=== PATIENT | male | born 1940 | race Caucasian/White ===

== ENCOUNTER → 2023-06-16 09:32 | Outpatient (BNVA) | payer OTHER, SELFPAY | PROVIDERS: PCP Emergency Medicine Emergency Medical Services; Referring Provider Emergency Medicine Emergency Medical Services; Visit Provider Psychiatry & Neurology Neurology | DX: F03.90 Unspecified dementia, unspecified severity, without behavioral disturbance, psychotic disturbance, mood disturbance, and anxiety (principal); R41.3 Other amnesia; R41.0 Disorientation, unspecified; R29.818 Other symptoms and signs involving the nervous system; Z79.899 Other long term (current) drug therapy | CPT/HCPCS: 36415; 82542; 82607; 82652; 82746; 83921; 84439; 84443; 84481; 86592; 86780; 99203 ==

== ENCOUNTER 2023-06-24 06:41 | Outpatient (CLI) | payer OTHER, SELFPAY ==
--- NOTE | 2023-06-24 06:45 | USCV_ITS ---
Denny Holder Age: 83 Gender: M : 1940 Exam Date: 06/24/2023 06:45 Ordering Phys: Lion Barajas MD Technologist: NICK Exam Location: [facility] [place] Indication: DIZZINESS Risk Factors: Previous Vascular Surgery: Right Brachial BP: / Left Brachial BP: / Right Left Velocity (cm/s) Spectral Plaque Velocity (cm/s) Spectral Plaque Syst/Diast Broadening Syst/Diast Broadening 111.60/ Prox CCA 87.10 / 69.20/ Mid CCA 56.40 / 56.40/ Hetro Distal CCA 49.10 / Hetro 80.10/ Hetro Prox ICA 51.60 / Hetro 74.70/ Mid ICA 62.30 / 68.30/ Distal ICA 58.70 / 87.40 ECA 82.10 1.40 ICA/CCA 1.30 Antegrade Vertebral Antegrade 27.00/ 4.80 cm/s 36.90/ 5.10 cm/s Tri Subclavian Bi 128.9 128.7 0 0 FINDINGS Minimal plaques in the scattered plaques in the common carotid, bifurcation and in the middle carotid arteries Normal Doppler flow velocities. Antegrade flow in the vertebral arteries bilaterally CONCLUSIONS Minimal plaques in the scattered plaques in the common carotid, bifurcation and in the middle carotid arteries. Features suggestive of less than 50% stenosis bilaterally. No significant stenosis in the vertebral, external carotid or subclavian arteries, based on the above findings Dr Boston Garcia MD [facility] (Electronically Signed) Final Date: 25 June 2023 09:46 S
== END 2023-06-24 06:42 | disposition home or self-care (01) ==
LOC: RAD 06:42
PROVIDERS: PCP Emergency Medicine Emergency Medical Services; Visit Provider Psychiatry & Neurology Neurology
DX: R26.89 Other abnormalities of gait and mobility (principal); I65.23 Occlusion and stenosis of bilateral carotid arteries
CPT/HCPCS: 93880

== ENCOUNTER 2023-07-16 08:45 | Outpatient (CLI) | payer OTHER, SELFPAY ==
--- NOTE | 2023-07-16 08:45 | MR_ITS ---
WS: [id number] MRI BRAIN WITH AND WITHOUT CONTRAST HISTORY: F03.90 - Unspecified dementia, unspecified severity COMPARISON: None available. TECHNIQUE: Multiplanar imaging performed through the brain with MultiHance 20 ml's IV. Diffusion imaging is normal. Moderate bilateral symmetric atrophy and mild small vessel ischemic dise ase. No large territory infarct. No susceptibility artifacts or prior lacunar infarcts. Ventricles and extra-axial spaces are prominent on the basis of central and peripheral atrophy. Mild hippocampal atrophy. Clivus and pituitary gland are normal. Visualized posterior fossa and brainstem are also normal. Postcontrast images are negative for masses or vascular malformations. Dural venous sinuses are normal. Paranasal sinuses: Well aerated with no significant disease. Mastoid air cells: Small amount of fluid LEFT mastoid air cells. Calvarium and scalp: Normal. IMPRESSION: 1. No acute infarct or enhancing mass. 2. Moderate bilateral symmetric atrophy and mild small vessel ischemic disease. 3. Mild bilateral hippocampal atrophy.
[2023-07-16] MEDS: gadobenate dimeglumine 20 mL vial IV (09:33)
== END 2023-07-16 08:46 | disposition home or self-care (01) ==
LOC: RAD 08:45
PROVIDERS: PCP Emergency Medicine Emergency Medical Services; Visit Provider Psychiatry & Neurology Neurology
DX: F03.90 Unspecified dementia, unspecified severity, without behavioral disturbance, psychotic disturbance, mood disturbance, and anxiety (principal); I67.82 Cerebral ischemia
CPT/HCPCS: 70553; A9577

== ENCOUNTER → 2023-09-22 12:46 | Outpatient (BNVA) | payer OTHER, SELFPAY | PROVIDERS: PCP Emergency Medicine Emergency Medical Services; Referring Provider Emergency Medicine Emergency Medical Services; Visit Provider Internal Medicine | DX: R07.9 Chest pain, unspecified (principal); R53.83 Other fatigue; R00.1 Bradycardia, unspecified; R94.31 Abnormal electrocardiogram [ECG] [EKG] | CPT/HCPCS: 93005; 99204 ==

== ENCOUNTER 2023-10-28 08:51 | Outpatient (CLI) | payer OTHER, SELFPAY ==
[2023-10-28 08:58] VITALS: BMI 31.1
--- NOTE | 2023-10-28 08:58 | ECG_ITS ---
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
--- NOTE | 2023-10-28 08:58 | NMCV_ITS ---
NM ozzie perf SPECT r/s* [id number] Denny Holder Age: 83 Gender: M : 1940 Exam Date: 10/28/2023 10:00 Ordering Phys: Yousuf Vaca M.D ([email or web address]) Technologist: JOSE Blanco Exam Location: [facility] [address] Indications: CP, SOB STRESS TEST Please see separate stress test report in [facility] for full findings IMAGE PROTOCOL Rest/Stress 1 Exercise Day Radiopharmaceutical Dose (mCi) Administration Site Administered by Rest: Tc-99m 10.4 IV JOSE Blanco Sestamibi Stress:Tc-99m 32.3 IV JOSE Blanco Sestamitonny Rest: 28-Oct-2023 60 Discovery 630 Stress: 28-Oct-2023 30 Discovery 630 Radiopharmaceutical was injected at 87 % maximum heart rate. Images obtained in supine and prone position. SPECT RESULTS Technical Quality: Good Raw Data Analysis: Normal Image Corrections: No attenuation or motion correction applied Summed Stress Score: 7 Summed Rest Score: 6 Summed Difference Score: 3 PERFUSION FINDINGS There is small area of inconsistent, partially reversible perfusion defect seen in the inferolateral wall. This consistent with attenuation artifact vs small area of prior infarct with small area of holland-infarct ischemia seen in the left circumflex artery territory. FUNCTIONAL RESULTS (calculated via Gated SPECT) Stress Image LV EF (%): 65 Stress EDV (mL):105 TID: 0.91 Stress ESV (mL):37 FUNCTIONAL FINDINGS: There is normal left ventricular systolic function. IMPRESSIONS 1. Attenuation artifact vs small area of prior infarct with minimal holland- infarct ischemia in left circumflex artery terrtiory. 2. LV systolic function is normal Yousuf Vaca MD (Electronically Signed) Final Date: 30 October 2023 09:17 S
--- NOTE | 2023-10-28 10:44 | PC.NURSE ---
Stress test/Physician Notified Dr. Vaca notified of pre-stress heart rate 41-44 sinus quan BP 125/70. Chart reviewed and does not take any medications which would lower HR. Called for clarification before proceeding with lexiscan stress test. Received orders to attempt exercise mibi due to significant bradycardia. If patient unable meet target HR with exercise mibi orders received to cancel remaining stress test and follow up in office.
[2023-10-28 11:05] VITALS: BP 156/86; PULSE 59
--- NOTE | 2023-10-28 12:15 | USCV_ITS ---
Denny Holder Age: 83 Gender: M : 1940 Exam Date: 10/28/2023 09:26 Ordering Phys: Yousuf Vaca M.D ([email or web address]) Technologist: GEOFF Exam Location: [facility] [place] Indication: CHEST PAIN AND SHORTNESS OF BREATH BP: 122 / 74 HR: 43 Rhythm: Sinus Technical Quality: Adequate MEASUREMENTS (Male / Female) Normal Values 2D ECHO LV Diastolic Diameter PLAX 4.3 cm 4.2 - 5.9 / 3.9 - 5.3 cm IVS Diastolic Thickness 1.0 cm 0.6 - 1.0 / 0.6 - 0.9 cm IVS Systolic Thickness 1.2 cm LVPW Diastolic Thickness 1.6 cm 0.6 - 1.0 / 0.6 - 0.9 cm LVPW Systolic Thickness 1.2 cm LVOT Diameter 2.0 cm LV Ejection Fraction 2D Teich 70.1 % LV Ejection Fraction MOD 4C 65.3 % LV Ejection Fraction MOD 2C 57.9 % LV Ejection Fraction 2C AL 60.9 % LA Diameter 4.7 cm RA Systolic Volume 4C AL 40.8 ml RA Systolic Volume 4C MOD 39.3 ml LA Sys Volume AL 47.3 cm cubed LA Sys Volume Index AL 20.3 cm cubed/m squared Aorta at Sinotubular Diameter 2.8 cm M-MODE LA Ao Ratio MM 1.3 AV Cusp Separation MM 1.2 cm DOPPLER AV Peak Velocity 196.4 cm/s LVOT Peak Velocity 112.0 cm/s AV Area Cont Eq vti 3.0 cm squared AV Area Cont Eq pk 1.8 cm squared MV Peak Velocity 99.0 cm/s MV Area PHT 2.9 cm squared Mitral E to A Ratio 1.5 TR Peak Velocity 309.0 cm/s TR Peak Gradient 38.2 mmHg TR Mean Velocity 235.0 cm/s TR Mean Gradient 24.5 mmHg TR Velocity Time Integral 111.4 cm TV Peak E Velocity 60.0 cm/s Right Atrial Pressure 3.0 mmHg Pulmonary Artery Systolic Pressu 41.2 mmHg PV Peak Velocity 82.0 cm/s RV Ejection Time 0.3 s FINDINGS Left Ventricle Left ventricle is normal in size. Left ventricular hypertrophy. LV systolic function is normal with EF 55 to 60%. No regional wall motion abnormalities are seen. Right Ventricle Normal in size and function Right Atrium Normal in size Left Atrium Normal in size Mitral Valve Structurally normal mitral valve. Mild mitral regurgitation. Aortic Valve Aortic valve is thickened. No significant stenosis. Mild aortic regurgitation Tricuspid Valve Mild tricuspid regurgitation. RVSP is 40 to 45 mmHg. This is consistent with mild pulmonary hypertension Pulmonic Valve Not well visualized Pericardium Normal Aorta Normal in size IVC Not well visualized CONCLUSIONS Left ventricular hypertrophy. LV systolic function is normal with EF 55 to 60%. Mild mitral regurgitation Mild aortic regurgitation Mild tricuspid regurgitation Mild pulmonary hypertension No comparison studies are available Yousuf Vaca MD (Electronically Signed) Final Date: 13 November 2023 07:52 S
== END 2023-10-28 08:52 | disposition home or self-care (01) ==
LOC: CDL 08:53
PROVIDERS: PCP Emergency Medicine Emergency Medical Services; Visit Provider Internal Medicine
DX: I51.7 Cardiomegaly (principal); R94.39 Abnormal result of other cardiovascular function study; R07.9 Chest pain, unspecified; R06.02 Shortness of breath
CPT/HCPCS: 36415; 78452; 93017; 93306; A9500

== ENCOUNTER → 2023-11-19 14:57 | Outpatient (BNVA) | payer OTHER, SELFPAY | PROVIDERS: PCP Emergency Medicine Emergency Medical Services; Visit Provider Psychiatry & Neurology Neurology | DX: F03.90 Unspecified dementia, unspecified severity, without behavioral disturbance, psychotic disturbance, mood disturbance, and anxiety (principal); R29.818 Other symptoms and signs involving the nervous system | CPT/HCPCS: 99212 ==

== ENCOUNTER → 2023-12-25 12:22 | Outpatient (BNVA) | payer OTHER, SELFPAY | PROVIDERS: PCP Emergency Medicine Emergency Medical Services; Visit Provider Internal Medicine | DX: R53.83 Other fatigue (principal); R00.1 Bradycardia, unspecified | CPT/HCPCS: 99213 ==

== ENCOUNTER 2024-03-30 08:37 | Emergency (ER) | payer OTHER, MEDICARE, SELFPAY ==
[2024-03-30 08:42] VITALS: BP 152/72; PULSE 73; RESP 18; TEMP 36.8; O2SAT 96
--- NOTE | 2024-03-30 08:44 | ECG_ITS ---
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 Measurements Intervals [place] Rate: 43 P: 44 TN: 204 QRS: 50 QRSD: 106 T: 65 QT: 481 QTc: 409 Interpretive Statements SINUS BRADYCARDIA WITH SINUS ARRHYTHMIA Compared to ECG 09/22/2023 12:53:33 Sinus rhythm no longer present Myocardial infarct finding no longer present Electronically Signed On 03-31-2024 01:03:55 WEIGHT AND TEST BAR CLERK by Boston Garcia M.D. [email or web address]
--- NOTE | 2024-03-30 08:49 | CTR_ITS ---
PROCEDURE INFORMATION: Exam: CT Head Without Contrast Exam date and time: 03/30/2024 8:59 AM Age: 83 years old Clinical indication: Stroke-like symptoms; Visual disturbance; Additional info: Symptoms of acute stroke TECHNIQUE: Imaging protocol: Computed tomography of the head without contrast. Radiation optimization: All CT scans at this facility use at least one of these dose optimization techniques: automated exposure control; mA and/or kV adjustment per patient size (includes targeted exams where dose is matched to clinical indication); or iterative reconstruction. Other technique: STROKE PROTOCOL was implemented. COMPARISON: MR head wo/w con [id number] 07/16/2023 9:07 AM RADIATION DOSE METRICS: Total DLP (mGy-cm): 1132.18 FINDINGS: Brain: Moderate central and cortical atrophy. Moderate small vessel ischemic disease. No intracranial hemorrhage. No midline shift. Cerebral ventricles: No ventriculomegaly. Paranasal sinuses: Visualized sinuses are unremarkable. No fluid levels. Mastoid air cells: Visualized mastoid air cells are well aerated. Bones: Unremarkable. No acute fracture. Soft tissues: Unremarkable. CT/CT head thrombolytic [id number] IMPRESSION: No acute intracranial abnormality. ASSESSMENT: ASPECTS ([place] Stroke Program Early CT Score) is 10.
--- NOTE | 2024-03-30 08:56 | CTR_ITS ---
PROCEDURE INFORMATION: Exam: CT Orbits With Contrast Exam date and time: 03/30/2024 9:06 AM Age: 83 years old Clinical indication: Visual changes or disturbances; Transient loss of vision; Additional info: Decreased vision in the R eye x 16hrs TECHNIQUE: Imaging protocol: Computed tomography of the orbits with contrast. Radiation optimization: All CT scans at this facility use at least one of these dose optimization techniques: automated exposure control; mA and/or kV adjustment per patient size (includes targeted exams where dose is matched to clinical indication); or iterative reconstruction. Contrast material: OMNI 350; Contrast volume: 100 ml; Contrast route: INTRAVENOUS (IV); COMPARISON: CT head thrombolytic [id number] 03/30/2024 8:59 AM RADIATION DOSE METRICS: Total DLP (mGy-cm): 605.54 FINDINGS: Paranasal sinuses: Normal. No air-fluid levels. Orbital cavities: Orbits are normal. Globes are unremarkable. Bones/joints: No acute fracture. Soft tissues: No significant facial soft tissue swelling. CT/CT orbit BI w con [id number] IMPRESSION: No acute findings.
--- NOTE | 2024-03-30 08:57 | ED_ITS ---
HPI - Eye Problem 2 General: Chief complaint: Eye Problems Stated complaint: stroke like symptoms Time Seen by Provider: 03/30/24 08:48 History of Present Illness: 83-year-old male presents emergency room with complaints of right thigh decreased vision began yesterday at around 4 or 5:00. He told the nurse Rj told me 5. No other focal symptoms is limited just to the vision in the right eye. He states he sees floaters in that eye. No difficulty with speech or swallowing. No ataxia or gait disturbance. Strength and sensation all extremities normal. Associated symptoms: Denies fever(s) or neck pain Related Data Home Medications Medication Instructions Recorded Confirmed finasteride 5 mg tablet mg PO 06/16/23 12/25/23 nitrofurantoin macrocrystal 50 mg mg PO 06/16/23 12/25/23 capsule pantoprazole 40 mg tablet,delayed 40 mg PO DAILY 06/16/23 12/25/23 release sertraline 100 mg tablet 100 mg PO DAILY 06/16/23 12/25/23 omega 8-crx-zrp-fish oil 300 1 cap PO DAILY 09/22/23 12/25/23 mg-1,000 mg capsule,delayed release (Fish Oil) trazodone 100 mg tablet 100 mg PO DAILY 09/22/23 12/25/23 donepezil 10 mg tablet 10 mg PO DAILY 12/25/23 12/25/23 Allergies Allergy/AdvReac Type Severity Reaction Status Date / Time No Known Allergies Allergy Verified 12/25/23 12:57 Review of Systems 2 Const: Denies: fever(s) or chills Card: Denies: chest pain Resp: Denies: dyspnea GI: Denies: abdominal pain : Denies: dysuria, urinary frequency or urinary urgency Musc: Denies: neck pain or back pain Skin/Breast: Denies: rash PFSH ED 2 PFSH: Social History Smoking and tobacco/nicotine status: never used tobacco/nicotine Physical Exam 2 Const: COMMON NORMALS: no acute distress GENERAL APPEARANCE: cooperative and comfortable ORIENTATION/CONSCIOUSNESS: Yes awake, Yes oriented to person, Yes oriented to place and Yes oriented to time HENMT: COMMON NORMALS: normocephalic, atraumatic and hearing grossly normal bilaterally HEAD & SCALP: normocephalic and atraumatic Resp: COMMON NORMALS: normal respiratory effort, No retractions, No use of accessory muscles and clear to auscultation bilaterally AUSCULTATION: clear to auscultation bilaterally Cardio: COMMON NORMALS: regular rate, regular rhythm and No murmurs present (Cardio) RATE: regular rate RHYTHM: regular rhythm GI: COMMON NORMALS: Soft to palpation and No hepatosplenomegaly present A USCULTATION: Yes normoactive bowel sounds PALPATION: Yes Soft to palpation, No Tenderness to palpation present (GI), No Guarding due to palpation present (GI) and Yes No hepatosplenomegaly present Extremity: COMMON NORMALS: normal to inspection, capillary refill normal, no clubbing, cyanosis or edema, no calf tenderness and no pedal edema Neuro: SENSORIUM/ORIENTATION: Yes oriented to person, Yes oriented to place and Yes oriented to time Skin: COMMON NORMALS: no rashes or lesions noted GENERAL SKIN EXAM: no rashes or lesions noted Course 2 Vital Signs: Vital signs: Vital Signs Temperature 98.3 F 03/30/24 08:42 Pulse Rate 45 L 03/30/24 10:53 Respiratory Rate 18 03/30/24 08:42 Blood Pressure 128/62 03/30/24 10:53 Pulse Oximetry 98 03/30/24 10:53 Oxygen Delivery Me thod Room Air 03/30/24 10:15 MDM - Eye Problem Medical Decision Making No findings of stroke. Patient has vision changes in the right eye but no other focal neurologic deficits. CT head and CT orbit with contrast negative. Discussed with on-call ophthalmology. Will discharge patient from the ER to their office they will see and evaluate there including more thorough eye exam with retinal evaluation. Discussed with patient. Medical Records I reviewed the patient's medical records. Lab Data I reviewed the patient's lab results. 03/30/24 09:30 03/30/24 09:[address] 03/30/24 08:49 IMPRESSION: No acute intracranial abnormality. ASSESSMENT: ASPECTS ([place] Stroke Program Early CT Score) is 10. ADDENDUM: 03/30/24918 CROW LUNA received the report at 03/30/2024 9:18 AM AGRICULTURAL EDUCATION TEACHER and had no questions per the radiology call center support representative. Orbit CT 03/30/24 08:56 IMPRESSION: No acute findings. Laboratory Results WBC 6.93 10^3/uL (3.29-11.43) 03/30/24 09:30 RBC 5.07 10^6/uL (3.85-5.65) 03/30/24 09:30 Hgb 14.40 g/dL (11.27-16.99) 03/30/24 09:30 Hct 44.9 % (37-53) 03/30/24 09:30 MCV 88.6 fl (82-101) 03/30/24 09:30 MCH 28.4 pg (27-33) 03/30/24 09:30 MCHC 32.1 g/dL (30-55) 03/30/24 09:30 RDW 14.3 % (12.1-15.1) 03/30/24 09:30 Plt Count 126 10^3/cmm (157-399) L 03/30/24 09:30 MPV 9.2 fL (7.4-10.4) 03/30/24 09:30 Neut % (Auto) 71.7 % 03/30/24 09:30 Lymph % (Auto) 17.3 % 03/30/24 09:30 [place] % (Auto) 8.4 % 03/30/24 09:30 Eos % (Auto) 1.7 % 03/30/24 09:30 Baso % (Auto) 0.6 % 03/30/24 09:30 Neut # (Auto) 4.97 10^3/uL (1.8-7.7) 03/30/24 09:30 Lymph # (Auto) 1.2 10^3/uL (0.8-4.8) 03/30/24 09:30 [place] # (Auto) 0.6 10^3/uL (0.2-0.9) 03/30/24 09:30 Eos # (Auto) 0.1 10^3/uL (0.0-0.8) 03/30/24 09:30 Baso # (Auto) 0.0 10^3/uL (0.0-0.1) 03/30/24 09:30 Nucleated RBC % (auto) 0 % 03/30/24 09:30 Nucleated RBCs # 0.0 /100WBC 03/30/24 09:30 PT 14.70 SECONDS (12.1-14.9) 03/30/24 09:30 INR 1.11 (0.8-1.2) 03/30/24 09:30 APTT 35.1 SECONDS (23.9-36.7) 03/30/24 09:30 Sodium 139 mmol/L (136-145) 03/30/24 09:30 Potassium 4.3 mmol/L (3.5-5.1) 03/30/24 09:30 Chloride 106 mmol/L (98-107) 03/30/24 09:30 Carbon Dioxide 25 mmol/L (22-29) 03/30/24 09:30 Anion Gap 12.3 (5-19) 03/30/24 09:30 BUN 25 mg/dL (8-23) H 03/30/24 09:30 Creatinine 1.5 mg/dL (0.7-1.2) H 03/30/24 09:30 GFR Calculation Not Reportable 03/30/24 09:30 Glucose 113 mg/dL (65-115) 03/30/24 09:30 Calculated Osmolality 293 mOsm/kg (285-295) 03/30/24 09:30 Calcium 8.8 mg/dL (8.5-10.5) 03/30/24 09:30 Total Bilirubin 0.4 mg/dL (0.15-1.2) 03/30/24 09:30 AST 14 U/L (0-40) 03/30/24 09:30 ALT 19 U/L (0-41) 03/30/24 09:30 Alkaline Phosphatase 68 U/L (40-130) 03/30/24 09:30 Total Protein 5.7 g/dL (6.6-8.7) L 03/30/24 09:30 Albumin 3.8 g/dL (3.5-5.2) 03/30/24 09:30 Globulin 1.9 g/dL (1.3-4.6) 03/30/24 09:30 Urine Color Dark yellow (Yellow) A 03/30/24 09:55 Urine Appearance Clear (CLEAR) 03/30/24 09:55 Urine pH 5.5 (5-7) 03/30/24 09:[address] 1.023 (1.005-1.030) 03/30/24 09:55 Urine Protein Negative (Negative) 03/30/24 09:55 Urine Glucose (UA) Negative (Normal) 03/30/24 09:55 Urine Ketones Negative (Negative) 03/30/24 09:55 Urine Blood Negative (Negative) 03/30/24 09:55 Urine Nitrate Negative (Negative) 03/30/24 09:55 Urine Bilirubin Negative (Negative) 03/30/24 09:55 Urine Urobilinogen 1.0 mg/dL (Negative) 03/30/24 09:55 Ur Leukocyte Esterase Negative (Negative) 03/30/24 09:55 Amorphous Sediment Not Reportable 03/30/24 09:55 Urine Opiates Screen Negative ng/mL (Negative) 03/30/24 09:55 Ur Barbiturates Screen Negative ng/mL (Negative) 03/30/24 09:55 Ur Phencyclidine Scrn Negative ng/mL (Negative) 03/30/24 09:55 Ur Amphetamines Screen Negative ng/mL (Negative) 03/30/24 09:55 U Benzodiazepines Scrn Negative ng/mL (Negative) 03/30/24 09:55 Urine Cocaine Screen Negative ng/mL (Negative) 03/30/24 09:55 U Marijuana (THC) Screen Negative ng/mL (Negative) 03/30/24 09:55 All radiology interpretation(s) finalized by discharge Discharge Plan Discharge Patient Disposition: Home Clinical Impression: Change in vision Condition: Stable Prescriptions: No Action finasteride 5 mg tablet PO nitrofurantoin macrocrystal 50 mg capsule PO pantoprazole 40 mg tablet,delayed release (DR/EC) 40 mg PO DAILY sertraline 100 mg tablet 100 mg PO DAILY trazodone 100 mg tablet 100 mg PO DAILY omega 1-xvv-hmz-fish oil [Fish Oil] 300-1,000 mg capsule,delayed release(DR/EC) 1 cap PO DAILY donepezil 10 mg tablet 10 mg PO DAILY Discharge Orders: Discharge ED (Routine); Ordered 03/30/24 Ordered By: Crow Luna Referrals: Jason Snyder [Physician] - Discharge Diet: Usual diet Discharge Activity: Resume usual activity Patient Instructions: Opioid Safety, Pain Management Activity Restrictions/Additional Instructions: Thank you for choosing [facility] for your healthcare needs today. It is very important that you follow up as instructed or that you return to the Emergency Department should you have concerns or if your condition changes or worsens in any way. You were seen in the emergency room with complaints of change of vision in your right eye. Based on your description suspect you may have a retinal detachment or retinal problem of some other sort. CT of your head and your orbits were normal there is no sign of acute pudgy. I discussed your case with the on-call ophthalmology group since her does not appear to be an emergent condition at this time we will discharge you from the ER they will see you immediately at their office for further evaluation. 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
[2024-03-30] MEDS: iohexol 350 mg/mL 500 mL Btl (per mL) IV (09:05)
[2024-03-30 09:34] VITALS: BP 152/72; PULSE 45; O2SAT 92
[2024-03-30 09:41] LABS: Basophils % 0.6 %; Eosinophils # 0.1 10^3/uL (0.0-0.8); Eosinophils % 1.7 %; Hematocrit 44.9 % (37-53); Lymphocytes # 1.2 10^3/uL (0.8-4.8); Lymphocytes % 17.3 %; Mean Corpuscular HGB Conc 32.1 g/dL (30-55); Mean Corpuscular Hemoglobin 28.4 pg (27-33); Mean Corpuscular Volume 88.6 fl (82-101); Mean Platelet Volume 9.2 fL (7.4-10.4); Monocytes # 0.6 10^3/uL (0.2-0.9); Monocytes % 8.4 %; Neutrophils # 4.97 10^3/uL (1.8-7.7); Neutrophils % 71.7 %; Nucleated Red Blood Cells % 0 %; Platelet Count 126 10^3/cmm (157-399); Red Blood Count 5.07 10^6/uL (3.85-5.65); Red Cell Distribution Width 14.3 % (12.1-15.1); White Blood Count 6.93 10^3/uL (3.29-11.43)
[2024-03-30 09:57] LABS: INR 1.11 (0.8-1.2)
[2024-03-30 09:58] LABS: Partial Thromboplastin Time 35.1 SECONDS (23.9-36.7)
[2024-03-30 09:59] LABS: Alanine Aminotransferase 19 U/L (0-41); Albumin Level 3.8 g/dL (3.5-5.2); Alkaline Phosphatase 68 U/L (40-130); Anion Gap 12.3 (5-19); Aspartate Amino Transferase 14 U/L (0-40); Blood Urea Nitrogen 25 mg/dL (8-23); Calcium 8.8 mg/dL (8.5-10.5); Carbon Dioxide 25 mmol/L (22-29); Chloride 106 mmol/L (98-107); Creatinine Clr Calc Pharmacy 49.2873; Globulin 1.9 g/dL (1.3-4.6); Glucose 113 mg/dL (65-115); Osmolality Calculated 293 mOsm/kg (285-295); Potassium 4.3 mmol/L (3.5-5.1); Sodium 139 mmol/L (136-145); Total Bilirubin 0.4 mg/dL (0.15-1.2); Total Protein 5.7 g/dL (6.6-8.7)
[2024-03-30 10:15] VITALS: BP 123/63; PULSE 43; O2SAT 96
[2024-03-30 10:19] LABS: Add Urine Microscopic? NO
[2024-03-30 10:29] LABS: Bilirubin Urine Negative (Negative); Blood Urine Negative (Negative); Glucose Urine UA Negative (Normal); Ketones Urine Negative (Negative); Leukocyte Esterase Urine Negative (Negative); Nitrate Urine Negative (Negative); Protein Urine Negative (Negative); Specific Gravity, Urine 1.023 (1.005-1.030); Urine Appearance Clear (CLEAR); Urine Color Dark Yellow (Yellow); pH Urine 5.5 (5-7)
[2024-03-30 10:30] LABS: Add Urine Culture? No; Charge for UA Resulting for Rev
[2024-03-30 10:36] LABS: Amphetamines Screen Urine Negative (Negative); Barbiturates Screen Urine Negative (Negative); Benzodiazepines Screen Urine Negative (Negative); Cocaine Screen Urine Negative (Negative); Opiate Screen Urine Negative (Negative); PCP Screen Urine Negative (Negative); THC Screen Urine Negative (Negative)
[2024-03-30 10:53] VITALS: BP 128/62; PULSE 45; O2SAT 98
== END 2024-03-30 10:53 | disposition home or self-care (01) ==
PROVIDERS: Emergency Provider Family Medicine; PCP Emergency Medicine Emergency Medical Services
DX: H54.7 Unspecified visual loss (principal)
CPT/HCPCS: 70450; 70481; 80053; 80306; 81003; 85025; 85610; 85730; 93005; 99285

== ENCOUNTER → 2024-05-31 10:24 | Outpatient (BNVA) | payer OTHER, SELFPAY | PROVIDERS: PCP Emergency Medicine Emergency Medical Services; Visit Provider Nurse Practitioner Family | DX: L02.12 Furuncle of neck (principal); D36.14 Benign neoplasm of peripheral nerves and autonomic nervous system of thorax; Z08 Encounter for follow-up examination after completed treatment for malignant neoplasm; Z85.828 Personal history of other malignant neoplasm of skin; L82.0 Inflamed seborrheic keratosis; L53.8 Other specified erythematous conditions; R20.8 Other disturbances of skin sensation; H53.452 Other localized visual field defect, left eye; L29.89 Other pruritus; D48.5 Neoplasm of uncertain behavior of skin; L57.0 Actinic keratosis | CPT/HCPCS: 11102; 17000; 17110; 99204 ==

== ENCOUNTER → 2024-06-15 12:55 | Outpatient (BNVA) | payer OTHER, SELFPAY | PROVIDERS: PCP Emergency Medicine Emergency Medical Services; Visit Provider Psychiatry & Neurology Neurology | DX: F03.90 Unspecified dementia, unspecified severity, without behavioral disturbance, psychotic disturbance, mood disturbance, and anxiety (principal); G93.40 Encephalopathy, unspecified; R26.89 Other abnormalities of gait and mobility; R41.3 Other amnesia; R41.0 Disorientation, unspecified; R29.818 Other symptoms and signs involving the nervous system | CPT/HCPCS: 99212 ==

== ENCOUNTER → 2024-08-18 13:07 | Outpatient (BNVA) | payer OTHER, SELFPAY | PROVIDERS: PCP Emergency Medicine Emergency Medical Services; Visit Provider Dermatology | DX: D36.13 Benign neoplasm of peripheral nerves and autonomic nervous system of lower limb, including hip (principal); C44.712 Basal cell carcinoma of skin of right lower limb, including hip; C44.41 Basal cell carcinoma of skin of scalp and neck; C44.619 Basal cell carcinoma of skin of left upper limb, including shoulder | CPT/HCPCS: 17262; 17272; 99213 ==

== ENCOUNTER → 2024-11-17 15:08 | Outpatient (BNVA) | payer OTHER, SELFPAY | PROVIDERS: PCP Emergency Medicine Emergency Medical Services; Visit Provider Nurse Practitioner Family | DX: D36.13 Benign neoplasm of peripheral nerves and autonomic nervous system of lower limb, including hip (principal); L57.8 Other skin changes due to chronic exposure to nonionizing radiation; L82.1 Other seborrheic keratosis; L81.4 Other melanin hyperpigmentation; X32.XXXA Exposure to sunlight, initial encounter; L91.8 Other hypertrophic disorders of the skin; Z08 Encounter for follow-up examination after completed treatment for malignant neoplasm; Z85.828 Personal history of other malignant neoplasm of skin; D48.5 Neoplasm of uncertain behavior of skin; L57.0 Actinic keratosis | CPT/HCPCS: 11102; 17000; 99213 ==

== ENCOUNTER → 2024-12-16 10:36 | Outpatient (BNVA) | payer OTHER, SELFPAY | PROVIDERS: PCP Emergency Medicine Emergency Medical Services; Visit Provider Dermatology | DX: C44.41 Basal cell carcinoma of skin of scalp and neck (principal); L82.0 Inflamed seborrheic keratosis; L30.4 Erythema intertrigo; L72.0 Epidermal cyst | CPT/HCPCS: 10060; 99214 ==

== ENCOUNTER → 2024-12-22 13:06 | Outpatient (BNVA) | payer OTHER, SELFPAY | PROVIDERS: PCP Emergency Medicine Emergency Medical Services; Visit Provider Internal Medicine | DX: R53.83 Other fatigue (principal); R00.1 Bradycardia, unspecified | CPT/HCPCS: 99213 ==

== ENCOUNTER → 2025-01-13 10:59 | Outpatient (BNVA) | payer OTHER, SELFPAY | PROVIDERS: PCP Emergency Medicine Emergency Medical Services; Visit Provider Dermatology | DX: L72.0 Epidermal cyst (principal); C44.41 Basal cell carcinoma of skin of scalp and neck | CPT/HCPCS: 17272; 99213 ==

== ENCOUNTER → 2025-03-11 14:33 | Outpatient (BNVA) | payer OTHER, SELFPAY | PROVIDERS: PCP Emergency Medicine Emergency Medical Services; Visit Provider Nurse Practitioner Family | DX: L57.8 Other skin changes due to chronic exposure to nonionizing radiation (principal); L82.1 Other seborrheic keratosis; L81.4 Other melanin hyperpigmentation; X58.XXXA Exposure to other specified factors, initial encounter; L91.8 Other hypertrophic disorders of the skin; D18.01 Hemangioma of skin and subcutaneous tissue; Z08 Encounter for follow-up examination after completed treatment for malignant neoplasm; Z85.828 Personal history of other malignant neoplasm of skin | CPT/HCPCS: 99213 ==

== ENCOUNTER 2025-03-27 06:48 | Emergency (ER) | payer OTHER, SELFPAY ==
[2025-03-27 06:43] VITALS: BP 142/70; PULSE 54; RESP 18; TEMP 37; O2SAT 92; BMI 35.9
--- NOTE | 2025-03-27 06:49 | W.ED.ABDPA2 ---
HPI - Abdominal Pain General: Chief Complaint: Abdominal Pain Stated Complaint: abdomen pain History of Present Illness: 84-year-old man with a history of dementia who presents to the emergency room with left lower quadrant abdominal pain. He presents by ambulance. is not present initially but is supposed to be coming. He is tender to palpation in the left lower quadrant. He has no other complaints at this time. He is pleasantly confused. No focal motor deficits. No known vomiting. EMS reports that he may have been constipated. Related Data Home Medications ?Medication ?Instructions ?Recorded ?Confirmed finasteride 5 mg tablet mg PO 06/16/23 12/22/24 pantoprazole 40 mg tablet,delayed 40 mg PO DAILY 06/16/23 12/22/24 release omega 5-wuf-byw-fish oil 300 1 cap PO DAILY 09/22/23 12/22/24 mg-1,000 mg capsule,delayed release (Fish Oil) calcium 600 mg (as cap PO 06/15/24 12/22/24 carbonate)-vitamin D3 12.5 mcg (500 unit) capsule sertraline 100 mg tablet 50 mg PO DAILY 06/15/24 12/22/24 Previous Rx's ?Medication ?Instructions ?Recorded glycerin (adult) 1 supp MA DAILY PRN constipation 03/27/25 #12 ea magnesium citrate 296 ml PO ONCE #296 mL 03/27/25 polyethylene glycol 3350 17 17 g PO DAILY #510 grams 03/27/25 gram/dose oral powder (Miralax) Allergies Allergy/AdvReac Type Severity Reaction Status Date / Time No Known Allergies Allergy Verified 12/22/24 13:12 Review of Systems Narrative: Constitutional symptoms: Negative except as documented in HPI. Skin symptoms: Negative except as documented in HPI. Eye symptoms: Negative except as documented in HPI. ENMT symptoms: Negative except as documented in HPI. Respiratory symptoms: Negative except as documented in HPI. Cardiovascular symptoms: Negative except as documented in HPI. Gastrointestinal symptoms: Negative except as documented in HPI. Genitourinary symptoms: Negative except as documented in HPI. Musculoskeletal symptoms: Negative except as documented in HPI. Neurologic symptoms: Negative except as documented in HPI. Psychiatric symptoms: Negative except as documented in HPI. Endocrine symptoms: Negative except as documented in HPI. FORMERLY [facility], 1928–1983 ED PFSH: Social History Smoking and tobacco/nicotine status: never used tobacco/nicotine Physical Exam Narrative: EXAM NARRATIVE: General: Alert, no acute distress. Skin: Warm, dry. Head: Normocephalic, atraumatic. Neck: Supple, trachea midline. Eye: Extraocular movements are intact. Ears, nose, mouth and throat: mucosa moist. Cardiovascular: Regular, Normal peripheral perfusion. Respiratory: Lungs are clear to auscultation, respirations are non-labored, breath sounds are equal, Symmetrical chest wall expansion. Gastrointestinal: Soft, moderate left lower quadrant tenderness to palpation, Non distended Musculoskeletal: Normal ROM, no deformity. Neurological: Alert and oriented to his , No focal neurological deficit observed. Psychiatric: Cooperative, appropriate mood & affect. Course Vital Signs: Vital signs: Vital Signs Temperature 98.6 F 03/27/25 06:43 Pulse Rate 54 L 03/27/25 06:43 Respiratory Rate 18 03/27/25 06:43 Blood Pressure 142/70 03/27/25 06:43 Pulse Oximetry 92 03/27/25 06:43 MDM - Abdominal Pain Medical Decision Making Medical decision making Patient's reason for coming to the emergency room: Abdominal pain Social determinants: Patient has fairly advanced dementia. Lives with his . Retired. I reviewed the patient's medical record. Patient was seen in cardiology clinic back in December of this year. For bradycardia. I reviewed the patient's current home meds Alternate historians: provided history once she arrived. She was concern for constipation. And we are treating this. Differential diagnosis for a patient who presents with left lower quadrant abdominal pain including but not limited to and based on the above HPI, review of systems and physical exam: Diverticulitis. Constipation Ureterolithiasis. Urinary tract infection. colitis. small bowel obstruction. Crohn's flare. Orders placed to evaluate differential diagnosis based on the above differential, HPI and physical exam Lab Review: Laboratory results were reviewed and interpreted by myself the emergency room physician. No leukocytosis. No anemia. No renal failure. Urinalysis is negative for infection. Liver enzymes are normal. CT of the abdomen pelvis: Small pleural effusions, postop nephrectomy. Prostate hyperplasia. This was reviewed and interpreted by myself the emergency room physician. I also reviewed the radiology report. Assessment of risk: Level of risk: Moderate risk patient. Elderly. Dementia. Hospitalization considerations: No indications for hospitalization Reexamination: Patient remained stable. No increased work of breathing. No altered mental status. No focal motor deficits. Assessment and plan: Constipation Abdominal pain - Discharged home - Discussed plan with and patient. Answered any questions. - Evaluation and treatment of this problem were appropriate in the emergency setting. Lab Data 03/27/25 07:04 03/27/25 07:04 Labs/Radiology: Radiology Impressions Abdomen/Pelvis CT 03/27/25 07:41 IMPRESSION: 1. Small pleural effusions. 2. Postop left nephrectomy surgical changes. 3. Prostate gland hyperplasia. 4. Grade 2 anterolisthesis of L5 in respect S1. Laboratory Results WBC 11.03 10^3/uL (3.29-11.43) 03/27/25 07:04 RBC 5.20 10^6/uL (3.85-5.65) 03/27/25 07:04 Hgb 15.00 g/dL (11.27-16.99) 03/27/25 07:04 Hct 45.7 % (37-53) 03/27/25 07:04 MCV 87.9 fl (82-101) 03/27/25 07:04 MCH 28.8 pg (27-33) 03/27/25 07:04 MCHC 32.8 g/dL (30-55) 03/27/25 07:04 RDW 13.9 % (12.1-15.1) 03/27/25 07:04 Plt Count 134 10^3/cmm (157-399) L 03/27/25 07:04 MPV 10.3 fL (7.4-10.4) 03/27/25 07:04 Neut % (Auto) 80.1 % 03/27/25 07:04 Lymph % (Auto) 8.8 % 03/27/25 07:04 [place] % (Auto) 8.3 % 03/27/25 07:04 Eos % (Auto) 2.1 % 03/27/25 07:04 Baso % (Auto) 0.4 % 03/27/25 07:04 Neut # (Auto) 8.85 10^3/uL (1.8-7.7) H 03/27/25 07:04 Lymph # (Auto) 1.0 10^3/uL (0.8-4.8) 03/27/25 07:04 [place] # (Auto) 0.9 10^3/uL (0.2-0.9) 03/27/25 07:04 Eos # (Auto) 0.2 10^3/uL (0.0-0.8) 03/27/25 07:04 Baso # (Auto) 0.0 10^3/uL (0.0-0.1) 03/27/25 07:04 Nucleated RBC % (auto) 0 % 03/27/25 07:04 Nucleated RBCs # 0.0 /100WBC 03/27/25 07:04 Sodium 136 mmol/L (136-145) 03/27/25 07:04 Potassium 3.7 mmol/L (3.5-5.1) 03/27/25 07:04 Chloride 103 mmol/L (98-107) 03/27/25 07:04 Carbon Dioxide 22 mmol/L (22-29) 03/27/25 07:04 Anion Gap 14.7 (5-19) 03/27/25 07:04 BUN 19 mg/dL (8-23) 03/27/25 07:04 Creatinine 1.2 mg/dL (0.7-1.2) 03/27/25 07:04 GFR Calculation Not Reportable 03/27/25 07:04 Glucose 109 mg/dL (65-115) 03/27/25 07:04 Calculated Osmolality 285 mOsm/kg (285-295) 03/27/25 07:04 Lactic Acid 0.9 mmol/L (0.5-2.2) 03/27/25 07:04 Calcium 9.0 mg/dL (8.5-10.5) 03/27/25 07:04 Total Bilirubin 0.9 mg/dL (0.15-1.2) 03/27/25 07:04 AST 25 U/L (0-40) 03/27/25 07:04 ALT 27 U/L (0-41) 03/27/25 07:04 Alkaline Phosphatase 69 U/L (40-130) 03/27/25 07:04 C-Reactive Protein 49.0 mg/L (0.0-4.9) H 03/27/25 07:04 Total Protein 7.0 g/dL (6.6-8.7) 03/27/25 07:04 Albumin 3.9 g/dL (3.5-5.2) 03/27/25 07:04 Globulin 3.1 g/dL (1.3-4.6) 03/27/25 07:04 Lipase 32 U/L (13-60) 03/27/25 07:04 Urine Color Yellow (Yellow) 03/27/25 07:32 Urine Appearance Clear (CLEAR) 03/27/25 07:32 Urine pH 5.5 (5-7) 03/27/25 07:32 Ur Specific Collins 1.014 (1.005-1.030) 03/27/25 07:32 Urine Protein Negative (Negative) 03/27/25 07:32 Urine Glucose (UA) Negative (Normal) 03/27/25 07:32 Urine Ketones Negative (Negative) 03/27/25 07:32 Urine Blood Negative (Negative) 03/27/25 07:32 Urine Nitrate Negative (Negative) 03/27/25 07:32 Urine Bilirubin Negative (Negative) 03/27/25 07:32 Urine Urobilinogen 1.0 mg/dL (Negative) 03/27/25 07:32 Ur Leukocyte Esterase Negative (Negative) 03/27/25 07:32 Urine RBC 0-2 /hpf (0-2) 03/27/25 07:32 Urine WBC 0-5 /hpf (0-5) 03/27/25 07:32 Ur Squamous Epith Cells 0-5 /hpf (0-5) 03/27/25 07:32 Amorphous Sediment Not Reportable 03/27/25 07:32 Urine Bacteria None seen /hpf (NONE) 03/27/25 07:32 Hyaline Casts 0.40 /lpf 03/27/25 07:32 All radiology interpretation(s) finalized by discharge Discharge Plan Discharge Patient Disposition: Home Clinical Impression: Constipation Condition: Stable Prescriptions: New magnesium citrate Solution 296 ml PO ONCE Qty: 296 0RF polyethylene glycol 3350 [Miralax] 17 gram/dose powder 17 g PO DAILY Qty: 510 0RF Rx Instructions: Take 1-2 scoops daily for the next 3 months to keep stools soft glycerin (adult) Suppository 1 supp MA DAILY PRN (Reason: constipation) Qty: 12 0RF No Action finasteride 5 mg tablet PO pantoprazole 40 mg tablet,delayed release (DR/EC) 40 mg PO DAILY sertraline 100 mg tablet 50 mg PO DAILY omega 2-tjx-fzi-fish oil [Fish Oil] 300-1,000 mg capsule,delayed release(DR/EC) 1 cap PO DAILY calcium carbonate-vitamin D3 600 mg-12.5 mcg (500 unit) capsule PO Discharge Orders: Discharge ED (Routine); Ordered 03/27/25 Ordered By: Sosa Macario Referrals: Jason Lazo DO [Primary Care Provider, Emergency Medicine] Patient Instructions: Constipation (ED), Opioid Safety, Pain Management, Patient Portal & Farhat Instructions Activity Restrictions/Additional Instructions: Thank you for choosing [facility] for your healthcare needs today. You have been screened and evaluated and felt safe for discharge. Health conditions do change or evolve sometimes and as such it is important that you follow up with your Primary Doctor to be re checked, 3-5 days is a general good time frame for follow up. You are always welcome to return to the ED for re assessment if your symptoms are worsening or you have new concerns Print Language: Faroese Coding Level of Care Code ED Kitchen Porter for Colton Paul
--- OUTSIDE RECORDS SUMMARY | 2025-03-27 06:53 | XMS_ITS | Patient Health Record ---
Author Organization [facility] Address [address] [place] [address] Care Team Providers Care Pulverizer Feeder Name Role Phone Bekah Guy Primary Care Provider UnavailOMEGA Mccormack Unavailable [phone] Allergies No Known Allergies Results Component Value Reference Range Notes US Renal--[id number] Reviewed date:11/09/2024 05:46:56 PM Interpretation: Performing Lab: Notes/Report: See Below For Report US Renal Read See Below For Report Urinalysis, Routine Reviewed date:11/09/2024 02:58:53 PM Interpretation: Performing Lab: Notes/Report: Urine-Color dark Appearance yellow Glucose - Bilirubin - Ketones - Specific Harrison 1.020 Occult Blood - pH 6.0 Urine Protein - Urobilinogen,Semi-Qn - Nitrite, Urine - WBC Esterase - Reason For Referral No Information Medications Medication SIG (Take, Route, Frequency, Duration) Notes Start Date End Date Status Multiple Vitamin Act isa Fish Oil Active Donepezil HCl 10 MG 1 tablet at bedtime Orally Once a day Active Pantoprazole Sodium 40 MG 1 tablet Orall y Once a day Active Finasteride 5 MG 1 tablet Orally Once a day Active traZODone HCl 50 MG 1 tablet at bedtime as needed Orally Once a day Active Nitrofurantoin Macrocrystal 50 MG 1 capsule Orally twice a day Active Sertraline HCl 100 MG 1 tablet Orally On ce a day Active Social History Tobacco Use: Social History Observation Description Date Details (start date - stop date) Never Smoker NA - NA Tobacco Use/Smoking Question Answer Notes Tobacco use: nonsmoker Alcohol Screen (Audit-C) Question Answer Notes Did you have a drink containing alcohol in the p ast year? No Points 0 Interpretation Negative Problems Problem Type SNOMED Code ICD Code Onset Dates Problem Status W/U Status Risk Notes Problem Neurogenic bladder (848171510) Neurogenic bladder (N31.9) Active confirmed Problem Absent kidney (188426918) Solitary kidney, acquired (Z90.5) Active confirmed Problem Lower urinary tract symptoms due to benign prostatic hypertrophy (70366045509198) Benign localized hyperplasia of prostate with urinary obstruction and other lower urinary tract symptoms (LUTS) (N40.1) Active confirmed Problem Benign prostatic hypertrophy with outflow obstruction (035546937) BPH loc w urin obs/LUTS (N40.1) Active confirmed Vital Signs Heart Rate 69 /min 11/09/2024 Height-cm 185.42 cm 11/09/2024 Blood pressure diastolic 75 mm Hg 11/09/2024 Weight-kg 101.15 kg 11/09/2024 Height 73 in 11/09/2024 Blood pressure systolic 117 mm Hg 11/09/2024 Weight 223 lbs 11/09/2024 BMI 29.42 kg/m2 11/09/2024 Encounters Encounter Location Date Provider Diagnosis [facility] [address] [facility] [address] 11/09/2024 OMEGA ALEXANDRE BPH loc w urin obs/LUTS N40.1 ; Neurogenic bladder N31.9 and Solitary kidney, acquired Z90.5 [facility] [address] [facility] [place] [address] 04/27/2024 OMEGA ALEXANDRE Neurogenic bladder N31.9 Assessments Encounter Date Diagnosis (ICD Code) Assessment Notes Treatment Notes Treatment Clinical Notes Section Notes 04/27/2024 Neurogenic bladder (ICD-10 - N31.9) 11/09/2024 BPH loc w urin obs/LUTS (ICD-10 - N40.1) Normal cystoscopy today with no abnormality other than massively enlarged prostate. He is on finasteride and defers any further workup for chronic PSA elevation given his age. He and his also had questions about transitioning to suprapubic tube but for now they will continue 2-3 times daily CIC indefinitely. Renal ultrasound with solitary kidney but no hydronephrosis. We will continue yearly surveillance cystoscopy and renal ultrasound for neurogenic bladder surveillance and he will return here with breakthrough infections or any new symptoms. Following cystoscopy, we have spent over 10 minutes in further consultation and treatment planning with greater than 50% of that time in direct xcfr-no-[id number] discussion. 11/09/2024 Neurogenic bladder (ICD-10 - N31.9) Normal cystoscopy today with no abnormality other than massively enlarged prostate. He is on finasteride and defers any further workup for chronic PSA elevation given his age. He and his also had questions about transitioning to suprapubic tube but for now they will continue 2-3 times daily CIC indefinitely. Renal ultrasound with solitary kidney but no hydronephrosis. We will continue yearly surveillance cystoscopy and renal ultrasound for neurogenic bladder surveillance and he will return here with breakthrough infections or any new symptoms. Following cystoscopy, we have spent over 10 minutes in further consultation and treatment planning with greater than 50% of that time in direct [id number] discussion. 11/09/2024 Solitary kidney, acquired (ICD-10 - Z90.5) Normal cystoscopy today with no abnormality other than massively enlarged prostate. He is on finasteride and defers any further workup for chronic PSA elevation given his age. He and his also had questions about transitioning to suprapubic tube but for now they will continue 2-3 times daily CIC indefinitely. Renal ultrasound with solitary kidney but no hydronephrosis. We will continue yearly surveillance cystoscopy and renal ultrasound for neurogenic bladder surveillance and he will return here with breakthrough infections or any new symptoms. Following cystoscopy, we have spent over 10 minutes in further consultation and treatment planning with greater than 50% of that time in direct wubx-vw-ieoy discussion. Plan Of Treatment Pending Test Test Name Order Date Renal Ultrasound LOKI [id number] 05/02/2023 Renal Ultrasound [id number] [id number] 10/26/2024 Renal w/bladder--[id number] 04/27/2024 Next Appt Details Provider Name:OMEGA Maldonado, 11/16/2025 01:10:00 PM, [address] [place], [address], Insurance Providers Payer Name Payer Address Payer Phone Subscriber Number Group Number Insured Name Patient Relationship to Insured Coverage Start Date Coverage End Date [employer] [address] [place], [place] [id number] [phone] [id number] Denny Holder Self - patient is the insured Medical (General) History Medical History History ICD Code UTIs Colon Cancer Mononucleosis ED Renal Carcinoma Anxiety/Depression BPH with LUTS neurogenic bladder - CIC Surgical History Surgery Date(Month/Year) Colon resection Left Nephrectomy Repair of left fractured wrist skin cancer removed from scalp, leg, and arm Hospitalization History Reason Date(Month/Year) see prior sx hx
--- OUTSIDE RECORDS SUMMARY | 2025-03-27 06:53 | XMS_ITS | Patient Health Record ---
Author Organization [facility] Address [address] [place] [address] Care Team Providers Care Avionics Shop Supervisor Name Role Phone [facility] Jason MCCORMICK Primary Care Provider Un available Red Cardenas Unavailable [phone] Bekah DANIELSIrvine Unavailable Unavailable Allergies No Known Allergies Reason For Referral No Information Medications Medication SIG (Take, Route, Frequency, Duration) Notes Start Date End Date Status Donepezil HCl 10 MG Tablet 1 tablet at b edtime Orally Once a day Active Finasteride 5 MG Tablet 1 tablet Orally Once a day Active Pantoprazole Sodium 40 MG Tablet Delayed Release 1 tablet Orally Once a day Active Sertraline HCl 100 MG Tablet 1 tablet Or ally Once a day Active Fish Oil 1000 MG Capsule Delayed Release 1 capsule Orally Once a day Active Nitrofurantoin Monohyd Macro 100 MG Capsule 1 capsule with food Orally every 12 hrs Active traZODone HCl 100 MG Tablet 1 tablet at bedtime Orally Once a day Active Social History Tobacco Use: Social History Observation Description Date Details (start date - stop date) Never Smoker NA - NA Social History Drugs/Alcohol: Social Info Question Answer Notes Alcohol Screen (Audit-C) Did you have a drink containing alcohol in the past year? No Points 0 Interpretation Negative Tobacco Use: Social Info Question Answer Notes xTobacco Use/Smoking Are you a never smoker Additional Details Category Social Info Options Details Drugs/Alcohol: Do you smoke marijuana? 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
--- OUTSIDE RECORDS SUMMARY | 2025-03-27 06:53 | XMS_ITS | Clinical Summary ---
Author Organization [facility] Address [address] [facility] Attn: [place] [address] Care Team Providers Care Water Truck Driver Name Role Phone Unavailable Primary Care Provider Unavailabl e Social History Tobacco Use Types Packs/Day Years Used Date Smoking Tobacco: Never Assessed Sex and Gender Information Value Date Recorded Sex Assigned at Not on file Legal Sex Male 10:58 AM CDT Gender Identity Not on file Sexual Orientation Not on file Plan of Treatment Upcoming Encounters Date Type Department Care Team (Late st Contact Info) Description 03/29/2025 11:30 AM SWINGING CUT OFF SAW OPERATOR Appointment [facility] [address] [place] [address] Branden Laguna MD [address] [place] [id number] Health Maintenance Due Date Last Done Comments DTAP/TDAP/TD VACCINES (1 - Tdap) 1960 PNEUMOCOCCAL VACCINE 50+ YEARS (1 of 1 - PCV) 05/11/18 92 ZOSTER VACCINE (1 of 2) 1991 RSV VACCINE (60+ or ) (1 - 1-dose 75+ series) 2016 INFLUENZA VACCINE (#1) 2024 Insurance [place] [employer] [employer]
--- OUTSIDE RECORDS SUMMARY | 2025-03-27 06:53 | XMS_ITS | Data Portability ---
Author Organization [facility], Main Office Address [address] [place] [address] Care Team Providers Care Licsw Name Role Phone Gissel SIMPSON Referring Provider Unavailabl e Assessment Encounter Date Assessment Date Assessment LastModified by Organization Details LastModified Time 04/06/2018 04/06/2018 77 year old white male comes in for refill on prescription. mercedes Not available 04/06/2018 13:35:54 02/17/2020 02/17/2020 79 year old white male comes in for yearly check. 77 year old white male comes in for refill on prescription. mercedes Not available 02/17/2020 12:37:01 10/18/2021 10/18/2021 81 yo male here to have visit regarding hematuria after self catherization . Is cathing 2-3 times each day mercedes Not available 10/18/2021 13:23:24 Plan of Treatment Reminders Order Date Submit Date Provider Last Modified By Organization Details Last Modified Time Details Appointments None recorded. Lab None recorded. Referral urologist referral - please consider robotic prostatec dominique, 2021 022 mercedes Doe MD, [address], [place], [address], 09:47:30 Procedures None recorded. Surgeries None recorded. Imaging None recorded. Medication Orders cefdinir 300 mg capsule 2021 022 [facility], [address], [place], [id number], 15:41:13 finasteri de 5 mg tablet 2019 020 INTERFACE [facility], [address] [place] [address], [id number], 0 18:42:51 nitrofura ntoin macrocrys xavi 50 mg capsule 2019 020 INTERFACE [facility], [address] [place] [address], [id number], 0 18:42:50 finasteri de 5 mg tablet 2017 018 INTERFACE [facility], [address] [place] [address], [id number], 8 13:58:30 nitrofura ntoin macrocrys xavi 50 mg capsule 2017 018 INTERFACE [facility], [address] [place] [address], [id number], 8 13:58:30 Patient TargetsNo targets recorded. Patient Instructions Encounter Date Encounter Id Patient Instructions Last Modified By Organization Details Last Modified Time 04/06/2018 [id number] Erection Problems: Care Instructions mercedes Not available 04/09/2018 12:20:46 will try canadia n cialis consider trimix mercedes Not available 04/06/2018 13:58:16 02/17/2020 [id number] Erection Problems: Care Instructions mercedes Not available 02/20/2020 18:42:48 We will check hi s PSA and make sure that it stable Refill on catheters and follow-up annually.Refill on antibiotics given as well mercedes Not available 02/20/2020 18:42:04 10/18/2021 [id number] Male Urinary Tract Infection (UTI): Care Instructions mercedes Not available 11/21/2021 11:22:48 prostate biopsy: about this test mercedes Not available 11/21/2021 11:22:48 blood in the urine: care instructions mercedes Not available 11/19/2021 14:00:59 I will go ahead and send a culture off and start him on antibiotics. I think it would be worley to go ahead and get him scheduled for a cystoscopy in the near future to make sure that we do not have something internally that needs to be addressed. I spent 25 minutes with the patient discussing management plans and options along with infections and treatment options mercedes Not available 11/19/2021 14:00:59 11/23/2021 [id number] urinary retention: care instructions mercedes Not available 11/25/2021 22:28:40 will refer [facility] for considering robotic prostatectomy otherwise will consider open prostatectomy mercedes Not available 11/25/2021 22:28:38 01/04/2022 [id number] Male Urinary Tract Infection (UTI): Care Instructions mercedes Not available 01/04/2022 15:34:57 I told him that without the CMG I really could not tell him whether he was a surgical candidate or not but he does not want to have surgical intervention so he will just continue to do self catheterizations. However I would tell him that he needs to get a creatinine after he starts catheterizing 3 times a day to see if it goes down. And if it does not then we get an ultrasound. 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 0 high Not Available [facility] [address] [facility] [place], [address], 04/06/2018 18:34:37 04/06/20 18 04/06/2018 PSA, total + free, serum or plasm a comment See Note: (NOTE ) INTER PRETA TION OF PERCE NT FREE PSA: In patie nts with total PSA melissa ntrat ions of 4-10 ng/mL , the proba bilit y of findi ng prost ate cance r on needl e biops y by age in years is: % Free PSA 50-59 y 60-69 y 70y and older <11% 49% 58% 65% 11-18 % 27% 34% 41% 19-25 % 18% 24% 30% >25% 9% 12% 16% Testi ng perfo rmed using Abbot t Archi tect Metho dolog y. Not Available [facility] [address] [place] [address] [place], [address], 04/06/2018 18:34:37 04/06/20 18 04/06/2018 PSA, total + free, serum or plasm a PSA, free 1.79 NG/mL Not Available [facility] [address] [place] [address] [place], [address], 04/06/2018 18:34:37 04/06/20 18 04/06/2018 PSA, total + free, serum or plasm a PSA, percent free 32.5 % Not Available [facility] [address] [place] [address] [place], [address], 04/06/2018 18:34:37 04/06/20 18 04/06/2018 PSA, total + free, serum or plasm a comment: See Note: (NOTE ) INTER PRETA TION OF ESTIM ATED RISK: Calcu lated risks are based on age and PSA melissa ntrat ion and assum e no prior prost ate biops y. They are inten ded to provi de a preli minar y asses sment of high- grade cance r risk if a prost ate biops y is perfo rmed. Addit ional clini noé infor matio n may modif y this risk. Risk formu las were deriv ed from men age 55 or older with no previ ous diagn osis of prost ate cance r and whose PSA and ZAY resul ts were less than 1 year old. See http: //esdras .[facility] csa.e du/UR Vamsi Calc/ Pages /uror isa lc.js p for an onlin e calcu lator and more infor matio n. Not Available [facility] [address] [place] [address] [place], [address], 04/06/2018 18:34:37 04/06/20 18 04/06/2018 PSA, total + free, serum or plasm a zay negative 15.6 %_ris k Not Available [facility] [address] [place] [address] [place], [address], 04/06/2018 18:34:37 04/06/20 18 04/06/2018 PSA, total + free, serum or plasm a zay negative, -amer ican 32.5 %_ris k Not Available [facility] [address] [place] [address] [place], [address], 04/06/2018 18:34:37 04/06/20 18 04/06/2018 PSA, total + free, serum or plasm a zay positive 33.4 %_ris k Not Available [facility] [address] [place] [address] [place], [address], 04/06/2018 18:34:37 04/06/20 18 04/06/2018 PSA, total + free, serum or plasm a zay positive, -amer ican 56.8 %_ris k Not Available [facility] [address] [place] [address] [place], [address], 04/06/2018 18:34:37 04/06/20 18 04/06/2018 PSA, total + free, serum or plasm a finasteride, zay negative 31.1 %_ris k Not Available [facility] [address] [place] [address] [place], [address], 04/06/2018 18:34:37 04/06/20 18 04/06/2018 PSA, total + free, serum or plasm a finasteride, zay neg, afam 54.2 %_ris k Not Available [facility] [address] [place] [address] [place], [address], 04/06/2018 18:34:37 04/06/20 18 04/06/2018 PSA, total + free, serum or plasm a finasteride, zay positive 55.2 %_ris k Not Available [facility] [address] [place] [address] [place], [address], 04/06/2018 18:34:37 04/06/20 18 04/06/2018 PSA, total + free, serum or plasm a finasteride, zay pos, afam 76.3 %_ris k Perfo rmed at [place], [place] Not Available [facility] [address] [place] [address] [place], [address], 04/06/2018 18:34:37 02/17/2002/17/2020 PSA, total + free, serum or plasm a PSA, total 6.12 NG/mL 0.0-4. 0 high Not Available [facility] [address] [place] [address] [place], [address], 02/17/2020 18:07:34 02/17/20 20 02/17/2020 PSA, total + free, serum or plasm a comment See Comme nts (NOTE ) INTER PRETA TION OF PERCE NT FREE PSA: In patie nts with total PSA melissa ntrat ions of 4-10 ng/mL , the proba bilit y of findi ng prost ate cance r on needl e biops y by age in years is: % Free PSA 50-59 y 60-69 y 70y and older <11% 49% 58% 65% 11-18 % 27% 34% 41% 19-25 % 18% 24% 30% >25% 9% 12% 16% Testi ng perfo rmed using Abbot t Archi tect Metho dolog y. Not Available [facility] [address] [place] [address] [place], [address], 02/17/2020 18:07:34 02/17/20 20 02/17/2020 PSA, total + free, serum or plasm a PSA, free 1.76 NG/mL Not Available [facility] [address] [facility] [place], [address], 02/17/2020 18:07:34 02/17/2002/17/2020 PSA, total + free, serum or plasm a PSA, percent free 28.8 % Not Available [facility] [address] [facility] [place], [address], 02/17/2020 18:07:34 02/17/2002/17/2020 PSA, total + free, serum or plasm a comment: See Comme nts (NOTE ) INTER PRETA TION OF ESTIM ATED RISK: Calcu lated risks are based on age and PSA melissa ntrat ion and assum e no prior prost ate biops y. They are inten ded to provi de a preli minar y asses sment of high- grade cance r risk if a prost ate biops y is perfo rmed. Addit ional clini noé infor matio n may modif y this risk. Risk formu las were deriv ed from men age 55 or older with no previ ous diagn osis of prost ate cance r and whose PSA and ZAY resul ts were less than 1 year old. See http: //esdras .[facility] csa.e du/[place] Agustin Calc/ Pages /uror iskca lc.js p for an onlin e calcu lator and more infor manuel n. Not Available [facility] [address] [facility] [place], [address], 02/17/2020 18:07:34 02/17/2002/17/2020 PSA, total + free, serum or plasm a zay negative 18.3 % Not Available [facility] [address] [facility] [place], [address], 02/17/2020 18:07:34 02/17/2002/17/2020 PSA, total + free, serum or plasm a zay negative, -amer ican 36.9 % Not Available [facility] [address], [place], [address], 02/17/2020 18:07:34 02/17/2002/17/2020 PSA, total + free, serum or plasm a zay positive 37.9 % Not Available [facility] [address] [place] [address] [place], [address], 02/17/2020 18:07:34 02/17/2002/17/2020 PSA, total + free, serum or plasm a zay positive, -amer ican 61.5 % Not Available [facility] [address] [place] [address] [place], [address], 02/17/2020 18:07:34 02/17/2002/17/2020 PSA, total + free, serum or plasm a finasteride, zay negative 35.5 % Not Available [facility] [address] [place] [address] [place], [address], 02/17/2020 18:07:34 02/17/2002/17/2020 PSA, total + free, serum or plasm a finasteride, zay neg, afam 58.9 % Not Available [facility] [address] [place] [address] [place], [address], 02/17/2020 18:07:34 02/17/2002/17/2020 PSA, total + free, serum or plasm a finasteride, zay positive 59.9 % Not Available [facility] [address] [place] [address] [place], [address], 02/17/2020 18:07:34 02/17/2002/17/2020 PSA, total + free, serum or plasm a finasteride, zay pos, afam 79.6 % Perfo rmed at [place], [place] Not Available [facility] [address] [place] [address] [place], [address], 02/17/2020 18:07:34 10/19/19 22 10/18/2021 PROST ATE SPECI FIC ANTIG EN, FREE AND TOTAL PSA, total 6.95 NG/mL 0.0-4. 0 high Not Available [facility] [address] [place] [address] [place], [address], 10/18/2021 23:17:18 10/19/19 22 10/18/2021 PROST ATE SPECI FIC ANTIG EN, FREE AND TOTAL comment See Comme nts (NOTE ) INTER PRETA TION OF PERCE NT FREE PSA: In patie nts with total PSA melissa ntrat ions of 4-10 ng/mL , the proba bilit y of findi ng prost ate cance r on needl e biops y by age in years is: % Free PSA 50-59 y 60-69 y 70y and older <11% 49% 58% 65% 11-18 % 27% 34% 41% 19-25 % 18% 24% 30% >25% 9% 12% 16% Testi ng perfo rmed using Abbot t Archi tect Metho dolog y. Not Available [facility] [address] [place] [address] [place], [address], 10/18/2021 23:17:18 10/19/19 22 10/18/2021 PROST ATE SPECI FIC ANTIG EN, FREE AND TOTAL PSA, free 2.60 NG/mL Not Available [facility] [address] [place] [address] [place], [address], 10/18/2021 23:17:18 10/19/19 22 10/18/2021 PROST ATE SPECI FIC ANTIG EN, FREE AND TOTAL PSA, percent free 37.4 % Not Available [facility] [address] [place] [address] [place], [address], 10/18/2021 23:17:18 10/19/19 22 10/18/2021 PROST ATE SPECI FIC ANTIG EN, FREE AND TOTAL comment: See Comme nts (NOTE ) INTER PRETA TION OF ESTIM ATED RISK: Calcu lated risks are based on age and PSA melissa ntrat ion and assum e no prior prost ate biops y. They are inten ded to provi de a preli minar y asses sment of high- grade cance r risk if a prost ate biops y is perfo rmed. Addit ional clini noé infor manuel n may modif y this risk. Risk formu las were deriv ed from men age 55 or older with no previ ous diagn osis of prost ate cance r and whose PSA and ZAY resul ts were less than 1 year old. See http: //esdras .[facility] csa.e du/UR ORisk Calc/ Pages /uror isa lc.js p for an onlin e calcu lator and more infor manuel n. Not Available [facility] [address] [place] [address] [place], [address], 10/18/2021 23:17:18 10/19/19 22 10/18/2021 PROST ATE SPECI FIC ANTIG EN, FREE AND TOTAL zay negative 21.8 % Not Available [facility] [address] [place] [address] [place], [address], 10/18/2021 23:17:18 10/19/19 22 10/18/2021 PROST ATE SPECI FIC ANTIG EN, FREE AND TOTAL zay negative, -amer ican 42.1 % Not Available [facility] [address] [place] [address] [place], [address], 10/18/2021 23:17:18 10/19/19 22 10/18/2021 PROST ATE SPECI FIC ANTIG EN, FREE AND TOTAL zay positive 43.1 % Not Available [facility] [address] [place] [address] [place], [address], 10/18/2021 23:17:18 10/19/19 22 10/18/2021 PROST ATE SPECI FIC ANTIG EN, FREE AND TOTAL zay positive, -amer ican 66.4 % Not Available [facility] [address] [place] [address] [place], [address], 10/18/2021 23:17:18 10/19/19 22 10/18/2021 PROST ATE SPECI FIC ANTIG EN, FREE AND TOTAL finasteride, zay negative 40.5 % Not Available [facility] [address] [place] [address] [place], [address], 10/18/2021 23:17:18 10/19/19 22 10/18/2021 PROST ATE SPECI FIC ANTIG EN, FREE AND TOTAL finasteride, zay neg, afam 64.0 % Not Available [facility] [address] [facility] [place], [address], 10/18/2021 23:17:18 10/19/19 22 10/18/2021 PROST ATE SPECI FIC ANTIG EN, FREE AND TOTAL finasteride, zay positive 65.0 % Not Available [facility] [address] [place] [address] [place], [address], 10/18/2021 23:17:18 10/19/19 22 10/18/2021 PROST ATE SPECI FIC ANTIG EN, FREE AND TOTAL finasteride, zay pos, afam 82.9 % Perfo rmed at [place], [place] Not Available [facility] [address] [place] [address] [place], [address], 10/18/2021 23:17:18 10/19/1910/18/2021 CULTU RE,UR INE culture,urin e - Speci men Descr iptio n: Urine Rando m Resul t: [id number] CFU/m L Klebs iella pneum oniae Perfo rmed at [facility] [place] , [place] ----- ----- ----- ----- ----- ----- ----- ----- ----- - Organ ism L - Klebs iella pneum oniae Metho d JASMIN ----- ----- ----- ----- ----- ----- ----- ----- ----- - Amoxi cilli n/Cla vulan ic Acid Susce ptibl e Ampic illin /Sulb actam Inter media te Ampic illin Resis tant Cefaz tessy Susce ptibl e Cefep rachel Susce ptibl e Cefta zidim e Susce ptibl e Cefta zidim e aviba ctam Susce ptibl e Ceftr iaxon e Susce ptibl e Cipro floxa vanita Resis tant Ertap enem Susce ptibl e Genta micin Susce ptibl e Imipe nem Susce ptibl e Levof loxac in Inter media te Merop enem Susce ptibl e Nitro furan toin Resis tant Piper acill in/Ta zobac hernandez Susce ptibl e Tobra mycin Susce ptibl e Trime thopr im/Dodge lfame thoxa zole Susce ptibl e Not Available [facility] [address] [place], [address], 10/20/2021 22:54:01 11/24/19 22 11/23/2021 CULTU RE,UR INE culture,urin e - Speci men Descr iptio n: Urine Clean Catch - Resul t: No Growt h 2 Days Perfo rmed at [facility] [place], [place] Not Available [facility] [address] [place], [address], 11/25/2021 17:19:45 01/19/20 22 US, renal No observ ation record edPastor long Not Available 01/29 10:14:50 Result Notes None recorded. Problems Name Problem SNOMED Code Status Onset Date Resolution Date Notes Provider Name and Address Organization Details Recorded Time Yrn hematuria 993203173 Active J VINICIO SIMPSON MD [address], [place], [address], [facility] 7 11:51:01 Urinary tract infectious disease 04540362 Active Gissel SIMPSON MD [address], [place], [address], [facility] 7 11:51:01 Dysuria 35547526 Active Gissel SIMPSON MD [address], [place], [address], [facility] 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 7 11:51:01 Problem Notes None recorded. Procedures Surgical History Date Name Laterality Status Provider Name and Address Organization Details Recorded Time 2 Cysto Male completed Gissel SIMPSON MD [address], [place], [address], [facility] 11/25/2021 22:19:06 2 venipuncture completed Gissel SIMPSON MD [address], [place], [address], [facility] 11/21/2021 11:22:39 0 venipuncture completed Gissel SIMPSON MD [address], [place], [address], [facility] 02/23/2020 12:23:38 8 venipuncture completed Gissel SIMPSON MD [address], [place], [address], [facility] 04/09/2018 12:21:03 8 venipuncture completed Gissel SIMPSON MD [address], [place], [address], [facility] 04/28/2017 11:49:23 8 Colonoscopy completed Gissel SIMPSON MD [address], [place], [address], [facility] 02/23/2020 12:26:40 7 venipuncture completed Gissel SIMPSON MD [address], [place], [address], [facility] 08/20/2017 12:23:03 7 Cysto Male completed Gissel SIMPSON MD [address], [place], [address], [facility] 01/09/2017 21:56:23 7 venipuncture completed Gissel SIMPSON MD [address], [place], [address], [facility] 12/04/2016 14:16:49 7 TRUSS for size completed Gissel SIMPSON MD [address], [place], [address], [facility] 07/10/2016 12:19:22 5 Colonoscopy completed RUI MARLEY MD [address], [place], [address], [facility] 07/03/2015 13:10:45 Imaging Results None recorded. Procedure Notes None recorded. Medical Equipment None Reported. Allergies No known drug allergies Medications Name Sig Start Date Stop Date Status Note LastModified by Organization Details LastModified Time nitrofurantoin macrocrystal 50 mg capsule TAKE ONE CAPSULE BY MOUTH TWICE DAILY active Not Available Not Available No t Available donepezil 5 mg tablet TAKE 1 TABLET AT BEDTIME. active Not Available Not Available No t Available trazodone 50 mg tablet TAKE 1 TABLET AT BEDTIME NEEDED. active Not Available Not Available No t Available azithromycin 250 mg tablet active Not Available Not Availabl e Not Available donepezil 10 mg tablet TAKE ONE TABLET BY MOUTH EVERY DAY active Not Available Not Available No t Available prednisone 20 mg tablet TAKE TWO TABLETS BY MOUTH DAILY active Not Available Not Available No t Available sertraline 100 mg tablet TAKE ONE TABLET BY MOUTH EVERY DAY active Not Available Not Available No t Available pantoprazole 40 mg tablet,delayed release TAKE ONE TABLET BY MOUTH EVERY DAY active Not Available Not Available No t Available nitrofurantoin macrocrystal 100 mg capsule Take 1 capsule every 6 hours by oral route for 7 days. 2016 active Not Available Not Available Not Avai lable sertraline 25 mg tablet active Not Available Not Available No t Available codeine 10 mg-guaifenesin 100 mg/5 mL oral liquid take 5-10 ML EVERY 4-6 hours NEEDED for cough active Not Available Not Available No t Available cefuroxime axetil 500 mg tablet TAKE ONE TABLET BY MOUTH TWICE DAILY FOR 10 DAYS 2021 active Not Available Not Available Not Avai lable ondansetron 4 mg disintegrating tablet dissolve ONE TABLET BY MOUTH EVERY 6 HOURS NEEDED FOR pain active Not Available Not Available No t Available cefdinir 300 mg capsule TAKE ONE CAPSULE BY MOUTH EVERY 12 hours FOR 10 DAYS active Not Available Not Available No t Available sertraline 50 mg tablet TAKE 1 TABLET DAILY. active Not Available Not Available No t Available finasteride 5 mg tablet take 1 tablet by mouth daily active Not Available Not Available No t Available diclofenac 1 % topical gel APPLY TO THE AFFECTED AREA(S) THREE TIMES DAILY NEEDED active Not Available Not Available No t Available nitrofurantoin 100 mg tablet Take by oral route. active Not Available Not Available No t Available Vitals Date Recorded Body height Body mass index (BMI) Body weight Provider Name and Address Organization Details Last Updated DateTime 10/18/2021 185.42 cm 28.4 kg/m2 19431.36 g Gissel SIMPSON MD [address], [place], [address], [place] [facility] 10/18/2021 13:04:18 Date Recorded Body height Body mass index (BMI) Body weight Provider Name and Address Organization Details Last Updated DateTime 01/04/2022 185.42 cm 28.4 kg/m2 66382.36 g Gissel SIMPSON MD [address], [place], [address], [place] [facility] 01/04/2022 15:10:01 Date Recorded Body height Body mass index (BMI) Body weight Provider Name and Address Organization Details Last Updated DateTime 02/17/2020 210.82 cm 21.9 kg/m2 41942.36 g Gissel SIMPOSN MD [address], [place], [address], [place] [facility] 02/17/2020 12:29:20 Date Recorded Body height Body mass index (BMI) Body weight Systolic And Diastolic Provider Name and Address Organization Details Last Updated DateTime 04/06/2018 210.82 cm 21.9 kg/m2 79813.36 g 122/77 mm[Hg] Gissel SIMPSON MD [address], [place], [address], [place] [facility] 04/06/2018 13:29:42 Social History Question Answer Notes LastModified by Organizat ion Details LastModified Time Tobacco Smoking Status Never Smoker RUI MARLEY MD [address], [place], [address], [facility] 06/28/2015 12:07:15 Are You Blind Or Do You Have Difficulty Seeing? No Information not available 06/28/2015 What Is Your Level Of Caffeine Consumption? None Information not available 06/28/2015 How Much Tobacco Do You Chew? None Information not available 06/28/2015 Are You Deaf Or Do You Have Serious Difficulty Hearing? No Information not available 06/28/2015 Diabetes No Information no t available 06/28/2015 How Many Days In The Past Year Have You Had A Heavy Drinking Consumption (4+ Female, 5+ Male)? 0 Information no t available 06/28/2015 High Blood Pressure No Information not available 06/28/2015 Urinary Urgency? No Informat ion not available 06/28/2015 Urinary Retention No Informa tion not available 06/28/2015 Incontinence- Can't Make To Bathroom No Information not available 06/28/2015 Incontinence-leak With Coughing,sneezing ? No Information not available 06/28/2015 What Was The Date Of Your Most Recent Tobacco Screening? 02/17/2020 mercedes Information not available 02/23/2020 Are You Sexually Active? No Information not available 06/28/2015 How Much Tobacco Do You Smoke? No Information not available 06/28/2015 Do You Have Difficulty Walking Or Climbing Stairs? No Information not available 06/28/2015 Sex: Unknown Functional Status Question Answer Note LastModified by Organizat ion Details LastModified Time What is your level of alcohol consumption? None Information not available 06/28/2015 Urinary incontinence assessment performed? No Information not available 06/28/2015 Do you have difficulty doing errands alone? No Information not available 06/28/2015 Do you have difficulty dressing, bathing, grooming, or toileting? No Information not available 06/28/2015 Mental Status Question Answer Note LastModified by Organization D etails LastModified Time Do you have difficulty concentrating, remembering or making decisions? No Information no t available 06/28/2015 Family History Nothing Reported. Medical History Condition Response Coronary Artery Disease N Gout N Other N Thyroid Disease N Atrial Fibrillation N Colon Cancer Y Kidney Stones N Hyperthyroidism N Enlarged Prostate N Tremors N Glaucoma N Hypothyroidism N Depression Y COPD N Pneumonia N Flank/Kidney/Abdominal Pain N [place] N Headaches/Migraines N Deep Vein Thrombosis N Anxiety Disorder N Autoimmune disease N Arthritis N Chronic ear infections N Diverticulosis N Cancer N Hematuria N Stroke N Urinary Frequency N High Cholesterol N Liver Disease N Urine Retention N Kidney Disease N Dysuria N Acid Reflux N Parkinson's Disease N Fatigue N Prostate Cancer N Waking To Urinate N Urinary Urgency N Joint Pain N Anemia N Back Pain N Muscle Weakness N Hay Fever N Diabetes N Difficulty swallowing N Bleeding Disorder N Seizures/Epilepsy N Tuberculosis N Hyperlipidemia N Wetting N Diverticulitis N Heart Attack N Cataract N Asthma N Bladder Cancer N Sinus Problems N Reflux/GERD N Hepatitis N Heart Disease N Bronchitis N Pulmonary Embolism N Hypertension N Heart Failure N Immunizations Vaccine Type Date Status Note Provider Nam e and Address Organization Details Recorded Time Influenza, split virus, quadrivalent, preservative 0 completed Gissel SIMPSON MD [address], [place], [address], [facility] 02/23/2020 12:26:24 Past Encounters Encounter ID Performer Location Encounter Start Date Encounter Closed Date Diagnosis/Indication Diagnosis SNOMED-CT Code Diagnosis ICD10 Code Diagnosis IMO Codes Diagnosis Note [id number] RUI MARLEY MD Main Office [address] [place] [address] 06/27/2015 17:11:36 07/03/2015 13:11:30 Yrn hematuria 886561155 R31.0 Urinary tr act infectious disease 35609105 N39.0 Dysuria 24096799 R30.0 Acontractile detrusor 19 6299223 N31.2 History of primary malignant neoplasm of kidney 098049254 Z85.520 [id number] Gissel SIMPSON MD Main Office [address] [place] [address] 07/10/2016 11:42:07 07/11/2016 14:32:42 Acontractile detrusor 019930661 N31.2 Benign pro static hyperplasia with outflow obstruction 689412062 N40.1 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 15486410 N32.0 Prostate s pecific antigen above reference range 919877966 R97.20 [id number] Gissel SIMPSON MD Main Office [address] [place] [address] 12/04/2016 13:02:46 12/13/2016 16:08:59 Acontractile detrusor 887283879 N31.2 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 83885244 N32.0 Benign pro static hyperplasia with outflow obstruction 460817993 N40.1 Prostate s pecific antigen above reference range 606829912 R97.20 [id number] J VINICIO SIMPSON MD Main Office [address] [place] [address] 12/18/2016 13:12:48 01/10/2017 13:50:21 Acontractile detrusor 850756285 N31.2 Urinary tr act infectious disease 47158388 N39.0 Difficulty managing urinary catheter 430473529 Z74.1 Traumatic urethral stricture 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 N35.014 [id number] J VINICIO SIMPSON MD Main Office [address] [place] [address] 04/09/2017 11:53:58 08/20/2017 14:02:39 Yrn hematuria 195007115 R31.0 Dysuria 68207318 R30.0 Prostate s pecific antigen above reference range 850000537 R97.20 Retention of urine 70800 4002 R33.9 [id number] [place] Schedule Main Office [address] [place] [address] 04/28/2017 11:07:31 04/30/2017 15:42:40 Prostate specific antigen above reference range 801138652 R97.20 [id number] J VINICIO SIMPSON MD Main Office [address] [place] [address] 04/06/2018 12:41:10 04/09/2018 12:53:14 Acontractile detrusor 180191492 N31.2 Urinary tr act infectious disease 38222923 N39.0 Impotence 805405270 N52. 03 Prostate s pecific antigen above reference range 776661267 R97.20 [id number] Gissel SIMPSON MD Main Office [address] [place] [address] 02/17/2020 12:25:20 02/23/2020 13:24:44 Acontractile detrusor 491261848 N31.2 Impotence 063367200 N52. 03 Urinary tr act infectious disease 00553207 N39.0 Prostate s pecific antigen above reference range 666038201 R97.20 [id number] Gissel SIMPSON MD Main Office [address] [place] [address] 10/18/2021 13:01:57 11/21/2021 14:22:06 Acontractile detrusor 058229975 N31.2 Yrn hematuria 14798297 5 R31.0 Klebsiella pneumoniae or Klebsiella oxytoca 486966344 A49.8 Urinary tr act infectious disease 62545405 N39.0 Prostate s pecific antigen above reference range 719210489 R97.20 [id number] Gissel SIMPSON MD Main Office [address] [place] [address] 11/23/2021 13:18:02 11/28/2021 14:40:29 Benign prostatic hyperplasia with outflow obstruction 107519005 N40.1 Retention of urine 42956 4002 R33.9 [id number] J VINICIO SIMPSON MD Main Office [address] [place] [address] 01/04/2022 15:09:18 01/16/2022 15:15:31 Urinary tract infectious disease 07903222 N39.0 Chronic re tention of urine 793424942 R33.8 Benign pro static hyperplasia with outflow obstruction 280455835 N40.1 Klebsiella pneumoniae or Klebsiella oxytoca 320000099 A49.8 Health Concerns Section Related Observation LastModified by Organization Detai ls LastModified Time None Recorded Concern Status LastModified by Organization Details LastModified Time None Recorded Advance Directives Directive None Recorded Payers Insurance Date Sequence Insurance Name Policy Number Policy Skelton Covered Member ID Skelton Member ID Guarantor Name 05/17/2022 1 MEDICARE B-ND Denny Holder [id number] Denny Holder 04/06/2018 2 A[employer]NA & A[employer]/ HEALTHCARE Denny Holder [id number] Denny Holder 02/17/2020 2 EQUITABLE LIFE AND CASUALTY Denny Holder [id number] Denny Holder 05/17/2022 2 [employer]ANCE PLAN N Denny Holder [id number] Denny Holder Notes Date Note Type Note Provider Name and Address Organization Details Recorded Time 04/06/2018 text/html [facility] J VINICIO SIMPSON MD [address], [place], [address], [facility] 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 02/23/2020 12:23:55 10/18/2021 text/html ROS as noted in the HPI Basilio is a very pleasant and intelligent 81-year-old who sees me for his PSA, his BPH and his atonic bladder.Patient's reported that he has been having some blood in his urine and is currently on self intermittent catheterization for a hypotonic bladder. I told him that I would like to get a urine culture today to see if he is infected that contributes to the hematuria Gissel SIMPSON MD [address], [place], [address], [facility] 11/21/2021 11:29:42 11/23/2021 text/html here for cysto for bph and retention Gissel SIMPSON MD [address], [place], [address], [facility] 11/28/2021 13:52:24 01/04/2022 text/html 81-year-old male who is on self intermittent catheterization twice a day comes in with cloudy urine and suspected urinary tract infection but also prompted him to come in as it is primary care doctor said that his creatinine was 1.4 now which apparently is different than what it was in the past. He has tried multiple voiding trials without success and he has never had a CMG but he does not really want to pursue any kind of surgical options at this point. He would rather just do self cath and I told him that we really need to have him self cath 3 times a day and see if his creatinine drops and if it does not then would probably want to get an ultrasound MD Moriah DORSEY [address], [place], [address], [place] [facility] 01/16/2022 12:59:48
[2025-03-27 07:09] LABS: Hematocrit 45.7 % (37-53); Hemoglobin 15.00 g/dL (11.27-16.99); Mean Corpuscular HGB Conc 32.8 g/dL (30-55); Mean Corpuscular Hemoglobin 28.8 pg (27-33); Mean Corpuscular Volume 87.9 fl (82-101); Nucleated Red Blood Cells % 0 %; Platelet Count 134 10^3/cmm (157-399); Red Blood Count 5.20 10^6/uL (3.85-5.65); White Blood Count 11.03 10^3/uL (3.29-11.43)
[2025-03-27 07:17] VITALS: BP 137/71; PULSE 58; O2SAT 90
[2025-03-27 07:29] LABS: Lactic Sepsis W/Reflex 0.9 mmol/L (0.5-2.2)
[2025-03-27 07:30] LABS: Alanine Aminotransferase 27 U/L (0-41); Albumin Level 3.9 g/dL (3.5-5.2); Alkaline Phosphatase 69 U/L (40-130); Anion Gap 14.7 (5-19); Aspartate Amino Transferase 25 U/L (0-40); Blood Urea Nitrogen 19 mg/dL (8-23); Calcium 9.0 mg/dL (8.5-10.5); Carbon Dioxide 22 mmol/L (22-29); Chloride 103 mmol/L (98-107); Globulin 3.1 g/dL (1.3-4.6); Glucose 109 mg/dL (65-115); Lipase 32 U/L (13-60); Osmolality Calculated 285 mOsm/kg (285-295); Potassium 3.7 mmol/L (3.5-5.1); Sodium 136 mmol/L (136-145); Total Protein 7.0 g/dL (6.6-8.7)
[2025-03-27 07:37] LABS: Glucose Urine UA Negative (Normal); Nitrate Urine Negative (Negative); Specific Gravity, Urine 1.014 (1.005-1.030)
--- NOTE | 2025-03-27 07:41 | CTR_ITS ---
PROCEDURE INFORMATION: Exam: CT Abdomen And Pelvis With Contrast Exam date and time: 03/27/2025 7:57 AM Age: 84 years old Clinical indication: Abdominal pain TECHNIQUE: Imaging protocol: Computed tomography of the abdomen and pelvis with contrast. Radiation optimization: All CT scans at this facility use at least one of these dose optimization techniques: automated exposure control; mA and/or kV adjustment per patient size (includes targeted exams where dose is matched to clinical indication); or iterative reconstruction. Contrast material: OMNI 350; Contrast volume: 100 ml; Contrast route: INTRAVENOUS (IV); COMPARISON: No relevant prior studies available. RADIATION DOSE METRICS: Total DLP (mGy-cm): 1026.38 FINDINGS: Pleural spaces: Small pleural effusions. Liver: Normal. No mass. Gallbladder and biliary ducts: Normal. No calcified stones. No ductal dilation. Pancreas: Normal. No ductal dilation. Spleen: Normal. No splenomegaly. Adrenal glands: Normal. No mass. Kidneys and ureters: Left kidney is surgically removed. Motion artifact somewhat limits evaluation. Stomach and bowel: Unremarkable. No obstruction. No mucosal thickening. Appendix: No evidence of appendicitis. Intraperitoneal space: Unremarkable. No free air. No significant fluid collection. Vasculature: Unremarkable. No abdominal aortic aneurysm. Lymph nodes: Unremarkable. No enlarged lymph nodes. Urinary bladder: Unremarkable as visualized. Reproductive: Prostate gland hyperplasia. Bones/joints: Grade 2 anterolisthesis of L5 in respect S1. No acute fracture. Soft tissues: Unremarkable. CT/CT abdomen pelvis w con* [id number] IMPRESSION: 1. Small pleural effusions. 2. Postop left nephrectomy surgical changes. 3. Prostate gland hyperplasia. 4. Grade 2 anterolisthesis of L5 in respect S1.
[2025-03-27 07:47] VITALS: BP 137/64; PULSE 58
[2025-03-27] MEDS: iohexol 350 mg/mL 500 mL Btl (per mL) IV (08:01)
[2025-03-27 09:17] VITALS: BP 140/64; PULSE 57; O2SAT 93
== END 2025-03-27 09:19 | disposition home or self-care (01) ==
PROVIDERS: Emergency Provider Emergency Medicine; PCP Emergency Medicine Emergency Medical Services
DX: K59.00 Constipation, unspecified (principal)
CPT/HCPCS: 74177; 80053; 81001; 83605; 83690; 85025; 86140; 87040; 99285